=== PATIENT | female | born 1950 | race Caucasian/White ===

== ENCOUNTER 2017-05-23 11:56 | Emergency (ER) | payer MEDICARE ==
[2017-05-23 12:27] LABS: Prothrombin Time 13.2 SEC (12.0-14.7)
[2017-05-23 12:33] LABS: Bilirubin Negative (Negative); Blood, Urine Moderate (Negative); Clarity Cloudy (Clear); Glucose, Urine (Dipstick) Negative (Negative); Leukocyte Small (Negative); Nitrite Positive (Negative); Protein, Urine (Dipstick) Negative (Neg-Trace); Urobilinogen 0.2 mg/dL (0.2-1.0)
[2017-05-23 12:34] LABS: Bacteria/HPF 4+ HPF (None Seen); RBC/HPF 0-3 HPF (0-3); Specific Gravity, Urine 1.006 (1.005-1.030); Squamous Epithelial 0-3 HPF (0-3)
[2017-05-23 12:36] LABS: ALT (SGPT) 14 U/L (8-55); AST (SGOT) 22 U/L (5-34); Albumin 4.5 g/dL (3.4-4.8); Alkaline Phosphatase 95 U/L (40-150); Anion Gap 16 mmol/L (10-20); BUN (Urea Nitrogen) 10 mg/dL (9.8-20.1); Bilirubin, Total 0.4 mg/dL (0.2-1.2); Calc. Creatinine Clearance 0 mL/min (70-130); Calcium 10.3 mg/dL (7.8-10.44); Carbon Dioxide 22 mmol/L (23-31); Chloride 104 mmol/L (98-107); Estimated GFR-MDRD 60; Glucose 113 mg/dL (80-115); Potassium 3.8 mmol/L (3.5-5.1); Protein, Total 7.5 g/dL (6.0-8.3); Sodium 138 mmol/L (136-145)
[2017-05-23 12:38] LABS: CKMB 2.7 ng/mL (0-6.6); Troponin I 0.036 ng/mL (< 0.028)
[2017-05-23 12:43] LABS: #Basophils 0.1 thou/uL (0.0-0.2); #Eosinphils 0.1 thou/uL (0.0-0.7); #Lymphocytes 2.3 thou/uL (1.20-3.40); #Monocytes 0.3 thou/uL (0.11-0.59); %Basophils 1.1 % (0.0-1.0); %Eosinophils 1.3 % (0.0-10.0); %Lymphocytes 33.6 % (21.0-51.0); %Monocytes 4.9 % (0.0-10.0); %Neutrophils 59.1 % (42.0-75.0); Hemoglobin 14.6 g/dL (12.0-16.0); Mean Corpuscular HGB CONC 37.3 g/dL (32.0-36.0); Mean Corpuscular Hemoglobin 32.4 pg (27.0-31.0); Mean Corpuscular Volume 86.9 fl (81.0-99.0); Mean Platelet Volume 9.1 fL (7.4-10.4); Platelet Count 250 thou/uL (130-400); RBC Distribution Width 11.7 % (11.5-14.5); Red Blood Cell (RBC) Count 4.49 mill/uL (4.20-5.40); White Blood Cell (WBC) Count 6.8 thou/uL (4.8-10.8)
[2017-05-23 12:44] LABS: MDiff Complete? YES
--- NOTE | 2017-05-23 18:36 | RAD ---
PORTABLE CHEST 05/23/17 An AP portable film at 1208 is compared with a 03/09/12 study. An electronic device is seen over the left hemithorax as before. The heart is normal in size. There i s no vascular congestion, edema, or pleural effusion. Some calcified granulomas are seen in the lungs as before. There is a small nodular density measuring about 1.3 cm in size that is immediately to th e left of the aortic arch. I do did not see it on the 2013 study. It could easily be a granuloma or v essel but is enough different from before that it deserves further followup. See comments below. Ther e are no focal pulmonary infiltrates. The trachea is midline. IMPRESSION: 1. No acute infiltrative process. No cardiomegaly or congestion. 2. Indeterminate 1.3 cm nodular density in the left upper lobe just to the left of the aortic ar ch. It may just a prominent vessel or granuloma, however, it is different than the 2013 scan, so I fe el it requires further followup. Ideally, A CT scan done electively would remove all doubts. One coul d follow it with serial chest x-rays over the next 1 to 3 months but further workup to remove all tamra bt is recommended. Code T POS: HOME
== END 2017-05-23 14:37 | disposition short-term general hospital (02) ==
LOC: BURERS 11:56
DX: I44.7 Left bundle-branch block, unspecified (principal); R55 Syncope and collapse; R79.89 Other specified abnormal findings of blood chemistry; E78.5 Hyperlipidemia, unspecified; F17.210 Nicotine dependence, cigarettes, uncomplicated; Z79.82 Long term (current) use of aspirin; Z79.899 Other long term (current) drug therapy
CPT/HCPCS: 71045; 80053; 81003; 81015; 82553; 83880; 84484; 85025; 85379; 85610; 85730; 87077; 87086; 87186; 93005; 94760

== ENCOUNTER 2020-06-20 14:19 | Emergency (ER) | payer MEDICARE ==
[2020-06-20] MEDS ORDERED: predniSONE 20 MG TAB ONE (15:14)
[2020-06-20] MEDS ORDERED: Boostrix 0.5 ML (Tdap) VIAL ONE (15:23)
== END 2020-06-20 15:33 | disposition home or self-care (01) ==
LOC: BURERS 14:19
DX: T63.2X1A Toxic effect of venom of scorpion, accidental (unintentional), initial encounter (principal); Z79.899 Other long term (current) drug therapy; Z79.82 Long term (current) use of aspirin; E78.00 Pure hypercholesterolemia, unspecified; F17.210 Nicotine dependence, cigarettes, uncomplicated
CPT/HCPCS: 90471; 90715; J7512

== ENCOUNTER 2020-06-21 22:11 | Emergency (ER) | payer MEDICARE | END 2020-06-21 22:25 | disposition home or self-care (01) | LOC: BURERS 22:11 | DX: T63.2X1A Toxic effect of venom of scorpion, accidental (unintentional), initial encounter (principal); E78.00 Pure hypercholesterolemia, unspecified; F17.210 Nicotine dependence, cigarettes, uncomplicated; Z79.899 Other long term (current) drug therapy; Z79.82 Long term (current) use of aspirin | CPT/HCPCS: 99282 ==